=== PATIENT | male | born 1990 | race Caucasian/White ===

== ENCOUNTER 2022-09-16 22:56 | Emergency (ER) | payer OTHER ==
[2022-09-16 23:03] VITALS: BP 144/83; PULSE 58; RESP 16; TEMP 98.5; BMI 27.3
[2022-09-16] MEDS ORDERED: ACETAMINOPHEN 500 MG TABLET (FP) PO ONE (23:03)
[2022-09-16] MEDS ORDERED: SULFAMETHOXAZOLE/TRIMETHOPRIM 800MG/160MG D.S. TABLET PO ONE (23:08)
[2022-09-16] MEDS ORDERED: ACETAMINOPHEN 500 MG TABLET (FP) ONE (23:09)
[2022-09-16] MEDS ORDERED: SULFAMETHOXAZOLE/TRIMETHOPRIM 800MG/160MG D.S. TABLET ONE (23:09)
[2022-09-16] MEDS ORDERED: DIPHTH,PERTUSS(ACELL),TET 0.5 ML DISP.SYRIN IM ONE ×2 (23:20→23:22)
[2022-09-16] MEDS ORDERED: CIPROFLOXACIN 500 MG TABLET (RESTRICTED TO ID) PO ONE (23:45)
[2022-09-16] MEDS ORDERED: CIPROFLOXACIN 250 MG TABLET (RESTRICTED TO ID) PO ONE (23:52)
== END 2022-09-17 00:07 | disposition home or self-care (01) ==
LOC: FER 22:56
PROC: 3E0234Z Introduction of Serum, Toxoid and Vaccine into Muscle, Percutaneous Approach (ICD-10-PCS; principal; 2022-09-16)
DX: S91.311A Laceration without foreign body, right foot, initial encounter (principal); W26.0XXA Contact with knife, initial encounter
CPT/HCPCS: 73630-TC-RT-FY; 90715; 99283-25